=== PATIENT | male | born 1955 | race African-American/Black ===

== ENCOUNTER 2017-05-05 15:22 | Inpatient (IN) | payer MEDICARE ==
[~2017-05-05] VITALS: Ht 182.9 cm; Wt 95.7 kg
[2017-05-05] MEDS ORDERED: MORPHINE SULFATE 4 MG/ML CPJ (NOT FOR IM USE) IV STA (15:36)
[2017-05-05] MEDS ORDERED: SODIUM CHLORIDE 0.9% 500 ML IV ONE (15:36)
[2017-05-05] MEDS ORDERED: ONDANSETRON HCL 4MG/2ML VIAL IV STA (15:36)
[2017-05-05] MEDS ORDERED: KETOROLAC 30MG/ML VIAL IV STA (15:36)
[2017-05-05] MEDS ORDERED: MORPHINE SULFATE 10 MG/ML CPJ IV NR (16:15)
[2017-05-05 16:19] LABS: BASOPHILS % 0.6 % (0.0-2.0); EOSINOPHILS % 1.2 % (0.0-5.0); HEMOGLOBIN. 14.2 g/dL (14.0-18.0); LYMPHOCYTES % 15.9 % (20.0-50.0); MEAN CORPUSCULAR HEMOGLOBIN 28.3 pg (28.0-32.0); MEAN CORPUSCULAR VOLUME 85.5 fL (80.0-94.0); MEAN PLATELET VOLUME 9.6 fl (7.4-10.4); MONOCYTES % 5.8 % (2.0-8.0); NEUTROPHILS % 76.5 % (40.0-76.0); PLATELET 160 x1000/uL (130-400); RED BLOOD CELL COUNT 5.03 mill/uL (4.7-6.1); RED CELL DISTRIBUTION WIDTH 16.6 % (11.6-14.6)
[2017-05-05 16:20] LABS: INR 1.1; PROTHROMBIN TIME 11.4 sec (9.4-11.6)
[2017-05-05 16:33] LABS: GLUCOSE URINE NEGATIVE (NEGATIVE); KETONES URINE NEGATIVE (NEGATIVE); LEUKOCYTE ESTERASE URINE NEGATIVE (NEGATIVE); NITRITE URINE NEGATIVE (NEGATIVE); OCCULT BLOOD URINE 1+ (NEGATIVE); PROTEIN URINE NEGATIVE (NEGATIVE); SPECIFIC GRAVITY URINE 1.009 (1.005-1.030); UROBILINOGEN URINE 0.2 E.U./dL (0.2-1.0)
[2017-05-05 16:35] LABS: CARBON DIOXIDE 28 mEq/L (21-32); CHLORIDE 104 mEq/L (98-107)
[2017-05-05 16:37] LABS: TROPONIN I 0.45 ng/mL (0.00-0.04)
[2017-05-05 16:58] LABS: CLARITY URINE HAZY (CLEAR); COLOR URINE YELLOW (YELLOW)
[2017-05-05] MEDS ORDERED: ASPIRIN 325MG EC TABLET PO ONE (17:15)
[2017-05-05 20:52] VITALS: BP 111/60
[2017-05-05 21:23] VITALS: BP 111/60
[2017-05-05] MEDS ORDERED: ASPI-1159 PO (22:18)
[2017-05-05] MEDS ORDERED: OMEP20CA10 PO (22:18)
[2017-05-05] MEDS ORDERED: HYDR-523 PO (22:18)
[2017-05-05] MEDS ORDERED: TAMS0.4C31 PO (22:18)
[2017-05-05] MEDS ORDERED: LISI40TA4 PO (22:18)
[2017-05-05] MEDS ORDERED: CARV25TA47 PO (22:18)
[2017-05-05] MEDS ORDERED: FURO40TA5 PO (22:18)
[2017-05-05] MEDS ORDERED: OXYB5TAB11 PO (22:18)
[2017-05-05] MEDS ORDERED: LEVE500T19 PO (22:18)
[2017-05-05] MEDS ORDERED: ROSU20TA PO (22:18)
[2017-05-05] MEDS ORDERED: SILD20TA PO (22:18)
[2017-05-05] MEDS ORDERED: VENL-180 PO (22:18)
[2017-05-05] MEDS ORDERED: LORA0.5T2 PO (22:18)
[2017-05-05] MEDS ORDERED: ACETAMINOPHEN 325MG TABLET PO PRN (22:30)
[2017-05-05] MEDS ORDERED: ONDANSETRON HCL 4MG/2ML VIAL IV PRN (22:30)
[2017-05-05] MEDS ORDERED: HYDROCODONE/ACETAMINOPHEN 5/325MG TABLET PO PRN (22:30)
[2017-05-06 00:05] VITALS: BP 101/61
[2017-05-06 04:00] VITALS: BP 107/65
[2017-05-06 06:51] LABS: BASOPHILS % 0.7 % (0.0-2.0); EOSINOPHILS % 2.5 % (0.0-5.0); HEMATOCRIT. 37.3 % (42.0-52.0); HEMOGLOBIN. 12.3 g/dL (14.0-18.0); LYMPHOCYTES % 22.9 % (20.0-50.0); MEAN CORPUSCULAR VOLUME 84.6 fL (80.0-94.0); MEAN PLATELET VOLUME 10.2 fl (7.4-10.4); MONOCYTES % 8.2 % (2.0-8.0); NEUTROPHILS % 65.7 % (40.0-76.0); PLATELET 133 x1000/uL (130-400); RED BLOOD CELL COUNT 4.41 mill/uL (4.7-6.1); RED CELL DISTRIBUTION WIDTH 16.7 % (11.6-14.6)
[2017-05-06 06:59] LABS: CARBON DIOXIDE 29 mEq/L (21-32); CHLORIDE 106 mEq/L (98-107)
[2017-05-06 08:00] VITALS: BP 123/68
[2017-05-06] MEDS ORDERED: TAMSULOSIN HCL 0.4MG SR CAPSULE PO SCH (09:00)
== END 2017-05-06 11:35 | disposition left against medical advice (07) | DRG 696 ==
LOC: ER 15:22 → 7WST 17:45 → ENRESERV 19:52
PROVIDERS: ADMIT Family Medicine; ATTEND Family Medicine
DX: R33.8 Other retention of urine (principal); C61 Malignant neoplasm of prostate; I11.0 Hypertensive heart disease with heart failure; I50.9 Heart failure, unspecified; R10.9 Unspecified abdominal pain; R33.9 Retention of urine, unspecified; Z53.21 Procedure and treatment not carried out due to patient leaving prior to being seen by health care provider; R11.2 Nausea with vomiting, unspecified; J45.909 Unspecified asthma, uncomplicated; Z85.46 Personal history of malignant neoplasm of prostate; Z95.1 Presence of aortocoronary bypass graft; Z79.899 Other long term (current) drug therapy
CPT/HCPCS: 36415; 51702; 71010; 80053; 81001; 83690; 84484; 85025; 85610; 93005; 96361; 96374; 96375; 99285; J1885; J2270; J2405; J7040; J7060; A4315

== ENCOUNTER 2018-05-10 09:50 | Emergency (ER) | payer MEDICARE, OTHER ==
[~2018-05-10] VITALS: Ht 185.4 cm; Wt 69.2 kg
[~2018-05-10 09:50] MED LIST: ASPI-1159 PO; CARV25TA47 PO; FURO40TA5 PO; HYDR-523 PO; LEVE500T19 PO; LISI40TA4 PO; LORA0.5T2 PO; OMEP20CA10 PO; OXYB5TAB11 PO; ROSU20TA PO; SILD20TA PO; TAMS0.4C31 PO; VENL-180 PO
[2018-05-10 13:42] LABS: BASOPHILS % 0.7 % (0.0-2.0); EOSINOPHILS % 1.6 % (0.0-5.0); HEMATOCRIT. 42.1 % (42.0-52.0); HEMOGLOBIN. 14.4 g/dL (14.0-18.0); LYMPHOCYTES % 35.1 % (20.0-50.0); MEAN CORPUSCULAR HEMOGLOBIN 32.2 pg (28.0-32.0); MEAN CORPUSCULAR VOLUME 94.3 fL (80.0-94.0); MEAN PLATELET VOLUME 8.3 fl (7.4-10.4); MONOCYTES % 6.4 % (2.0-8.0); NEUTROPHILS % 56.2 % (40.0-76.0); PLATELET 233 x1000/uL (130-400); RED BLOOD CELL COUNT 4.47 mill/uL (4.7-6.1); RED CELL DISTRIBUTION WIDTH 13.4 % (11.6-14.6)
[2018-05-10 13:49] LABS: INR 1.1; PARTIAL THROMBOPLASTIN TIME 28.9 sec (23.4-31.0); PROTHROMBIN TIME 10.9 sec (9.1-11.1)
[2018-05-10 13:51] LABS: CHLORIDE 102 mEq/L (98-107); ETHANOL BLOOD < 10 mg/dL
[2018-05-10 13:56] LABS: CREATINE KINASE 170 IU/L (39-308); LDL CHOLESTEROL 64 mg/dL (5-100)
[2018-05-10] MEDS ORDERED: IOHEXOL-300 100 ML BOTTLE ONE (16:15)
[2018-05-10] MEDS ORDERED: ONDANSETRON HCL 4MG/2ML INJ IV ONE ×2 (16:45)
[2018-05-10] MEDS ORDERED: MORPHINE SULFATE 4 MG/ML CPJ (NOT FOR IM USE) IV ONE ×2 (16:45)
[2018-05-10 18:10] VITALS: BP 149/98
== END 2018-05-10 18:12 | disposition home or self-care (01) ==
LOC: ER 09:50 → CANBEDREQ 18:28
DX: R53.1 Weakness (principal); M54.12 Radiculopathy, cervical region; I11.0 Hypertensive heart disease with heart failure; I50.9 Heart failure, unspecified; F17.200 Nicotine dependence, unspecified, uncomplicated; Z98.890 Other specified postprocedural states
CPT/HCPCS: 36415; 70450; 71045; 80053; 82550; 82962; 83690; 83721; 83735; 83880; 84484; 85025; 85610; 85730; 93005; 96374; 96375; 99285; G0482; J2270; J2405; Q9967